=== PATIENT | female | born 1950 | race Caucasian/White ===

== ENCOUNTER 2017-10-25 06:05 | Inpatient (IN) | payer MEDICARE, BC ==
[2017-10-20 11:24] LABS: BASOPHILS # (AUTO) 0.1 X10'3 (0-0.2); BASOPHILS % (AUTO) 0.8 % (0-1); EOSINOPHILS # (AUTO) 0.1 X10'3 (0-0.9); EOSINOPHILS % (AUTO) 1.9 % (0-6); LYMPHOCYTES # (AUTO) 2.3 X10'3 (1.1-4.8); LYMPHOCYTES % (AUTO) 36.2 % (21-51); MEAN CORPUSCULAR HEMOGLOBIN 30.9 PG (27.0-31.0); MEAN CORPUSCULAR HGB CONC 34.9 % (33.0-36.5); MEAN CORPUSCULAR VOLUME 88.5 FL (78-98); MEAN PLATELET VOLUME 8.1 FL (7.4-10.4); MONOCYTES # (AUTO) 0.5 X10'3 (0-0.9); MONOCYTES % (AUTO) 8.1 % (2-12); NEUTROPHILS # (AUTO) 3.4 X10'3 (1.8-7.7); PRE OP HEMATOCRIT 40.3 % (35.0-45.0); PRE OP HEMOGLOBIN 14.1 g/dL (12.0-16.0); PRE OP PLATELET COUNT 256 X10'3 (140-440); RED BLOOD COUNT 4.55 X10'6 (4.20-5.60); RED CELL DISTRIBUTION WIDTH 12.3 % (11.5-14.5)
[2017-10-20 11:26] LABS: CLARITY,URINE CLEAR (Clear); COLOR,URINE YELLOW (Yellow); GLUCOSE, URINE NEGATIVE (Neg); KETONES,URINE NEGATIVE (Neg); LEUKOCYTE ESTERASE ,URINE NEGATIVE (Neg); NITRITES, URINE NEGATIVE (Neg); OCCULT BLOOD,URINE SMALL (Neg); PROTEIN,URINE NEGATIVE (Neg); UROBILINOGEN,URINE 0.2 E.U/dL (0.2-1.0)
[2017-10-20 11:33] LABS: UA COLLECTION TYPE CLN CATCH MIDSTREAM
[2017-10-20 11:35] LABS: BACTERIA,URINE NONE SEEN /HPF (Neg); HEMOGLOBIN A1C 7.7 % (4.5-6.2); MUCUS STRANDS NONE SEEN /LPF (Neg); RBC,URINE NONE SEEN /HPF (0-2); SQUAMOUS EPITHELIAL CELL,UR NONE SEEN /LPF (FEW); WBC,URINE NONE SEEN /HPF (0-4)
[2017-10-20 11:40] LABS: ALBUMIN 4.2 G/DL (3.4-5.0); ALBUMIN/GLOBULIN RATIO 1.2 (1.1-1.5); ALKALINE PHOSPHATASE 78 IU/L (46-116); BLOOD UREA NITROGEN 20 MG/DL (7-18); BUN/CREATININE RATIO 23.3 (6.6-38.0); CALCIUM 9.3 MG/DL (8.5-10.1); CHLORIDE 101 MMOL/L (99-107); CREATININE 0.86 MG/DL (0.40-0.90); PRE OP ALT 43 U/L (30-65); PRE OP ANION GAP 7 (8-16); PRE OP AST 22 U/L (10-37); PRE OP BILIRUB, TOTAL 1.3 MG/DL (0.0-1.0); PRE OP GLUCOSE 164 MG/DL (70-104); PRE OP POTASSIUM 4.1 MMOL/L (3.4-5.1); PRE OP SODIUM 138 MMOL/L (135-145); TOTAL CARBON DIOXIDE 30.2 MMOL/L (24-32); TOTAL PROTEIN 7.7 G/DL (6.4-8.2); eGFR 66 ML/MIN
[~2017-10-25] VITALS: Ht 167.6 cm; Wt 87.1 kg
[2017-10-25] VITALS (25 sets, daily range): BP systolic 126–162; BP diastolic 54–76
[~2017-10-25 06:05] MED LIST: AMLO2.5T2 PO; ASPI-1265 PO; ATEN25TA PO; ATOR40TA PO; BUPR150T8 PO; Cefazolin 2GM/50ML dext iso,osmotic IVPB IV ONE; DOCUMENT DATE & TIME OF BETA-BLOCKER PO ONE; HYDR25TA4 PO; LOSA25TA96 PO; METF500T7 PO; VIT1CAPS46 PO; albuterol 2.5 MG/3 ML nebule NEB ONE; famotidine 20mg tablet PO ONE; nitroGLYCERIN-Tridil 50MG/D5W 250 ML IV PRN; phenylephrine inj 10 MG in normal saline 250ml IV soln 250 ML IV PRN; ringers solution, lacted 1,000 ML IV SCH
[2017-10-25] MEDS ORDERED: heparin 10,000 units/1 ML INJ ONE ×2 (06:54→09:26)
[2017-10-25] MEDS ORDERED: LIDOcaine 1% (10mg/ml) 2ml vial ONE (06:54)
[2017-10-25] MEDS ORDERED: LIDOcaine 1% 30ml preserv. free vial ONE (06:54)
[2017-10-25] MEDS ORDERED: insulin regular, human 10 units/0.1 ml syringe IV ONE (08:10)
[2017-10-25] MEDS ORDERED: midazolam 2 mg/2 ml injection ONE (08:31)
[2017-10-25] MEDS ORDERED: fentaNYL /PF 50mcg/ml 5ml ampule ONE (08:32)
[2017-10-25] MEDS ORDERED: rocuronium 10mg/ml inj IV ONE (08:34)
[2017-10-25] MEDS ORDERED: phenylephrine 10mg/ml inj. ONE (08:41)
[2017-10-25] MEDS ORDERED: sevoflurane 250ml liquid IH ONE (08:41)
[2017-10-25] MEDS ORDERED: nitroGLYCERIN in D5W 50mg/250ml (Tridil) infusion IV ONE (08:41)
[2017-10-25] MEDS ORDERED: ePHEDrine 50MG/ML INJ. ONE (09:12)
[2017-10-25] MEDS ORDERED: epiNEPHrine 1 mg/ml inj ONE (09:12)
[2017-10-25] MEDS ORDERED: propofol inj 20 ML IV ONE (09:12)
[2017-10-25] MEDS ORDERED: LIDOcaine 2% (20mg/ml) 5ml vial ONE (09:12)
[2017-10-25] MEDS ORDERED: nitroGLYCERIN-Tridil 50MG/D5W 250 ML IV PRN (09:53)
[2017-10-25] MEDS ORDERED: phenylephrine inj 10 MG in normal saline 250ml IV soln 250 ML IV PRN (09:53)
[2017-10-25] MEDS ORDERED: ringers solution, lacted 1,000 ML IV SCH (09:53)
[2017-10-25] MEDS ORDERED: meperidine/PF 25mg/ml syringe IV PRN ×3 (09:55)
[2017-10-25] MEDS ORDERED: morphine 4 MG/ML inj SYRINge IV PRN ×2 (09:55)
[2017-10-25] MEDS ORDERED: proCHLORperazine 10 MG/2 ml inj IV PRN (09:55)
[2017-10-25] MEDS ORDERED: ondansetron/PF 4mg/2ml inj IV PRN (09:55)
[2017-10-25] MEDS ORDERED: glycopyrrolate 0.2mg/ml inj ONE (10:00)
[2017-10-25] MEDS ORDERED: ondansetron/PF 4mg/2ml inj ONE (10:00)
[2017-10-25] MEDS ORDERED: neostigmine methylsulfate 1 MG/ML 10ml vial ONE (10:00)
[2017-10-25] MEDS ORDERED: dextrose 50%-water 50ml dispensing syringe IV PRN ×2 (10:10)
[2017-10-25] MEDS ORDERED: CADD PCA waste documentation MC PRN (10:10)
[2017-10-25] MEDS ORDERED: dextrose ORAL solution 15 GM/59 ML bottle PO PRN ×2 (10:10)
[2017-10-25] MEDS ORDERED: insulin Lispro (HumaLOG) vial - multi-dose SQ SCH (10:10)
[2017-10-25] MEDS ORDERED: glucagon, human recombinant 1mg kit SUBCUT PRN (10:10)
[2017-10-25] MEDS ORDERED: naloxone 0.4 mg/ml inj IV PRN (10:10)
[2017-10-25] MEDS ORDERED: MESSAGE TO PHARMACY PO ONE (10:10)
[2017-10-25] MEDS: HYDROmorphone/NS 1 mg/ml CADD 50 ML IV SCH ×7 (13:00→23:00)
[2017-10-25] MEDS ORDERED: insulin glargine (Lantus) pen - multi-dose SQ SCH (21:00)
[2017-10-26] VITALS (16 sets, daily range): BP systolic 116–158; BP diastolic 54–74
[2017-10-26] MEDS: HYDROmorphone/NS 1 mg/ml CADD 50 ML IV SCH ×8 (01:00→15:00)
[2017-10-26] MEDS ORDERED: enoxaparin 40mg/0.4ml syringe SQ SCH (08:00)
[2017-10-26] MEDS ORDERED: buPROPion 100mg tablet PO SCH (08:05)
[2017-10-26] MEDS ORDERED: HYDROchlorothiazide 25mg tablet PO SCH (08:05)
[2017-10-26] MEDS ORDERED: proCHLORperazine 10 MG/2 ml inj IV PRN (08:05)
[2017-10-26] MEDS ORDERED: amLODIPine 5mg tablet PO SCH (08:05)
[2017-10-26] MEDS ORDERED: ondansetron/PF 4mg/2ml inj IV PRN (08:05)
[2017-10-26] MEDS ORDERED: atenolol 25mg tablet PO SCH (08:05)
[2017-10-26] MEDS ORDERED: buPROPion SR 150mg tablet PO SCH (08:11)
== END 2017-10-26 15:50 | disposition home or self-care (01) | DRG 39 ==
LOC: PAS IN 06:05 → EDSTATUS 08:30 → ICU 2S 11:25
PROVIDERS: ADMIT Surgery; ATTEND Surgery
PROC: 03CN0ZZ Extirpation of Matter from Left External Carotid Artery, Open Approach (ICD-10-PCS; 2017-10-25)
PROC: 03CL0ZZ Extirpation of Matter from Left Internal Carotid Artery, Open Approach (ICD-10-PCS; 2017-10-25)
PROC: 03UN0KZ Supplement Left External Carotid Artery with Nonautologous Tissue Substitute, Open Approach (ICD-10-PCS; 2017-10-25)
PROC: 03CJ0ZZ Extirpation of Matter from Left Common Carotid Artery, Open Approach (ICD-10-PCS; principal; 2017-10-25 08:41)
DX: I65.22 Occlusion and stenosis of left carotid artery (principal); E11.9 Type 2 diabetes mellitus without complications; E66.9 Obesity, unspecified; F41.9 Anxiety disorder, unspecified; J02.9 Acute pharyngitis, unspecified; Z91.041 Radiographic dye allergy status; Z79.84 Long term (current) use of oral hypoglycemic drugs; Z79.82 Long term (current) use of aspirin; Z79.899 Other long term (current) drug therapy; Z87.891 Personal history of nicotine dependence; Z68.31 Body mass index [BMI] 31.0-31.9, adult
CPT/HCPCS: 36415; 71046; 80053; 81001; 82948; 83036; 85025; 85610; 85730; 86885; 86900; 86901; 87070; 88300; 95813; 95816; A6213; A6222; A6257; A6258; A6449; A7000; C1768; J0171; J0690; J0780; J1170; J1644; J1650; J1815; J2001; J2250; J2370; J2405; J2704; J2710; J3010; J3490; J7030; J7120